=== PATIENT | male | born 1990 | race Caucasian/White ===

== ENCOUNTER 2017-03-07 17:15 | Emergency (ER) | payer BC, SELFPAY ==
[2017-03-07 17:17] VITALS: BP 111/62; PULSE 78; RESP 16; TEMP 36.7; O2SAT 96; BMI 29.1
--- NOTE | 2017-03-07 17:36 | ED.VISSUMM ---
- ER Visit Summary Date of Service: 03/07/17 Chief Complaint: Lower neck pain with numbness in his right hand History of Present Illness: The patient is a 26 M no senior past medical or surgical history. Patient states for 1 month is atraumatic lower neck pain with radiation to his right hand and numbness. States he is taking a bottle of NSAIDs a week. It does help him with the discomfort but is not getting any better. He denies any prior neck or back injury or surgeries. He believes it to be a pinched nerve. He has no primary care physician. Physical Examination: Well-appearing young male. Vital signs are stable afebrile. HEENT exam unremarkable. C-spine nontender. Full range of motion to his neck. No trapezial tenderness or spasm. Lungs clear to auscultation bilaterally. Heart regular rate and rhythm no murmur. Abdomen soft nontender. He is moving all 4 extremities. They are neurovascularly intact. Specifically he has full range of motion of his right shoulder, right elbow, right wrist and right hand. He has 5 out of 5 orderly strength of the right hand. Normal color. Normal cap refill. Warm. No muscular wasting. Normal radial pulse. Neurologic exam is normal. Subjectively he has sensation but is decreased in his right hand compared to his left. It is not in a carpal tunnel distribution and stocking glove in the right hand. But again he does have sensation. Test Results: None Emergency Department Course and Treatment: Patient's history and exam is consistent with potentially a cervical disc with nerve impingement. He has good motor strength and no muscular wasting of his right upper extremity. He needs outpatient follow-up and most likely an outpatient MRI. I discussed at length with both the patient and his in the room are both are comfortable with the plan. He will continue taking NSAIDs but I told him at most use 800 mg 3 times a day. Treatment Plan: Patient will be referred to Dr. Gentry Whitt. For outpatient follow-up and set up for an outpatient MRI. Disposition: Discharge Impression: Lower neck pain with radiation to his right hand with subjective numbness suspect secondary to degenerative disc disease and nerve impingement This note was generated with [employer] dictation software. It may contain incorrect words, spelling, and punctuation that were not noted in review of the chart prior to signing ED Disposition - Plan for ED Patient: Chief Complaint: Other, Pain/Inj
--- NOTE | 2017-03-07 17:38 | ED.RN ---
pt reports burning sensation in neck going down arm. denies chest pain or any other sx. pt reports going to chiropractor but no improvement. taking ibuprofen at home.
--- NOTE | 2017-03-07 17:39 | ED.DCSUM_ITS ---
- ER Visit Summary Date of Service: 03/07/17 Chief Complaint: Lower neck pain with numbness in his right hand History of Present Illness: The patient is a 26 M no senior past medical or surgical history. Patient states for 1 month is atraumatic lower neck pain with radiation to his right hand and numbness. States he is taking a bottle of NSAIDs a week. It does help him with the discomfort but is not getting any better. He denies any prior neck or back injury or surgeries. He believes it to be a pinched nerve. He has no primary care physician. Physical Examination: Well-appearing young male. Vital signs are stable afebrile. HEENT exam unremarkable. C-spine nontender. Full range of motion to his neck. No trapezial tenderness or spasm. Lungs clear to auscultation bilaterally. Heart regular rate and rhythm no murmur. Abdomen soft nontender. He is moving all 4 extremities. They are neurovascularly intact. Specifically he has full range of motion of his right shoulder, right elbow, right wrist and right hand. He has 5 out of 5 certified prosthetist vice president strength of the right hand. Normal color. Normal cap refill. Warm. No muscular wasting. Normal radial pulse. Neurologic exam is normal. Subjectively he has sensation but is decreased in his right hand compared to his left. It is not in a carpal tunnel distribution and stocking glove in the right hand. But again he does have sensation. Test Results: None Emergency Department Course and Treatment: Patient's history and exam is consistent with potentially a cervical disc with nerve impingement. He has good motor strength and no muscular wasting of his right upper extremity. He needs outpatient follow-up and most likely an outpatient MRI. I discussed at length with both the patient and his in the room are both are comfortable with the plan. He will continue taking NSAIDs but I told him at most use 800 mg 3 times a day. Treatment Plan: Patient will be referred to Dr. Gentry Whitt. For outpatient follow-up and set up for an outpatient MRI. Disposition: Discharge Impression: Lower neck pain with radiation to his right hand with subjective numbness suspect secondary to degenerative disc disease and nerve impingement This note was generated with [employer] dictation software. It may contain incorrect words, spelling, and punctuation that were not noted in review of the chart prior to signing ED Disposition - Plan for ED Patient: Chief Complaint: Other, Pain/Inj
--- NOTE | 2017-03-07 17:39 | ED.DEP ---
ED Disposition - Plan for ED Patient: Disposition: Home or Assisted Living Chief Complaint: Other, Pain/Inj Instructions: ED Neck Pain No Trauma Referrals: Zacarias Gilmore MD [STAFF PHYSICIAN] - Additional Instructions: Call and follow-up with Dr. Gentry Gilmore's office as soon as possible. They can set her up with an outpatient MRI. Advil, Motrin or ibuprofen no more than 800 mg 3 times a day. Return to the ER if loss of motor strength to your right hand or arm. Most likely this is a pinched nerve in your neck.
--- NOTE | 2017-03-07 17:50 | ED.RN ---
THIS RN REVIEWED WRITTEN AND VERBAL DISCHARGE INSTRUCTIONS WITH PT AND PT . PT AND VERBALIZE UNDERSTANDING OF INSTRUCTIONS. PT EDUCATED ON PROPER IBUPROFEN DOSING. ICE PACK PLACED ON RIGHT SHOULDER PRIOR TO DISCHARGE. PT STATES HE WILL CALL DR. MENDEZ TO SET UP APPT. AND INFORMED HE MAY NEED AND MRI. PT EDUCATED TO RETURN WITH ANY WORSENED SX SUCH LOSS OF FUNCTION IN RIGHT ARM. PT AMBULATORY HOME WITH AND CHILDREN WITH NO ASSISTANCE FROM STAFF.
== END 2017-03-07 17:54 | disposition home or self-care (01) ==
PROVIDERS: Emergency Provider Emergency Medicine
DX: M54.12 Radiculopathy, cervical region (principal)
CPT/HCPCS: 99282

== ENCOUNTER → 2017-03-09 16:32 | Outpatient (CLI) | payer BC, SELFPAY ==
[2017-03-07 17:17] VITALS: BP 111/62; BMI 29.1
--- NOTE | 2017-03-09 16:35 | RAD_ITS ---
STUDY: X-RAY - CERVICAL SPINE REASON FOR EXAM: Male, 26 years old. Cervical radicular pain TECHNIQUE: 6 view(s) of the cervical spine were obtained. COMPARISON: None FINDINGS: Normal anterior atlantoaxial articulation. Normal odontoid process. Normal cervical lordosis. Normal vertebral bodies and endplates. Normal disc space heights. Mild neural foraminal narrowing bilaterally at C4-5. The soft tissue structures are unremarkable. RAD/Cerv Spine 4 or 5 Views IMPRESSION: Mild bilateral C4-5 neural foraminal narrowing. Electronically Signed: Olaf Rae DO at 9:38 EST , Service support ,
== END ==
PROVIDERS: Visit Provider Family Medicine
DX: M54.12 Radiculopathy, cervical region (principal); M48.02 Spinal stenosis, cervical region
CPT/HCPCS: 72050

== ENCOUNTER → 2017-03-22 17:54 | Outpatient (CLI) | payer BC, SELFPAY ==
--- NOTE | 2017-03-22 18:00 | MRI_ITS ---
STUDY: MRI CERVICAL SPINE WITHOUT CONTRAST REASON FOR EXAM: Male, 26 years old. Right radicular neck pain TECHNIQUE: Standardized fat and water weighted pulse sequences were obtained in the sagittal and axial planes. COMPARISON: None FINDINGS: There is a normal craniovertebral junction. There is also an intact tectorial membrane. There is overall normal alignment and curvature of the cervical spine with no acute fractures or dislocations and no abnormal marrow infiltrative processes. There is disc protrusion at the C6-C7 level in the right foraminal area. There is no tonsillar ectopia. The cervical spinal cord is of normal morphology and signal intensity. C2-3: Normal endplates. Normal disc height, signal and morphology. Normal central canal and intervertebral neural foramina. C3-4: Normal endplates. Normal disc height, signal and morphology. Normal central canal and intervertebral neural foramina. C4-5: Normal endplates. Normal disc height, signal and morphology. Normal central canal and intervertebral neural foramina. C5-6: Normal endplates. Normal disc height, signal and morphology. Normal central canal and intervertebral neural foramina. C6-7: There is a fairly large 1.1 x 0.5 cm right foraminal disc protrusion at the C6-C7 level with narrowing of the intervertebral foramen and compression on the exiting right C7 nerve root. The cervical spinal cord is normal.. C7-T1: Normal endplates. Normal disc height, signal and morphology. Normal central canal and intervertebral neural foramina. . MRI/Spine Cervical (Routine) IMPRESSION: A fairly large 1.1 x 0.5 cm right foraminal disc protrusion at the C6-C7 level with impingement on the exiting right C7 nerve root. The cervical spinal cord is of normal morphology and signal intensity with no myelopathy or myelomalacia adenopathy. Electronically Signed: Don Mayer, at 8:00 EST Tel , Service support ,
== END ==
PROVIDERS: Visit Provider Family Medicine
DX: M50.123 Cervical disc disorder at C6-C7 level with radiculopathy (principal)
CPT/HCPCS: 72141

== ENCOUNTER 2023-12-28 20:00 | Emergency (ER) | payer BC, SELFPAY ==
[2023-12-28 20:01] VITALS: BP 163/106; PULSE 86; RESP 18; TEMP 36.2; O2SAT 99; BMI 31.8
--- NOTE | 2023-12-28 20:16 | EX.ED.GENINJ ---
HPI <MARSHA Delgado - Last Filed: 12/28/23 21:33> History of Present Illness Chief Complaint: Laceration Narrative Narrative: 33-year-old male accidentally kicked a rayne with his left foot. He was wearing socks and slides and the shoe came off and he sustained a laceration on the bottom surface of the toe. Last tetanus unknown. He is not diabetic. PFSH <MARSHA Delgado - Last Filed: 12/28/23 21:33> PFSH Medical History no medical history Home Medications ?Medication ?Instructions ?Recorded ?Last Taken ?Type NK 03/07/17 Unknown History Allergy/AdvReac Type Severity Reaction Status Date / Time No Known Allergies Allergy Verified 12/28/23 20:01 Family History no significant family his Surgical History no surgical history Social History Smoking Status: Never smoker ROS <MARSHA Delgado - Last Filed: 12/28/23 21:33> ROS ED ROS Narrative Neuro: Negative for motor/sensory dysfunction. Skin: Positive for laceration. Musc: Positive for toe pain, trauma. EXAM <MARSHA Delgado - Last Filed: 12/28/23 21:33> Physical Exam Narrative Exam Narrative: CONST: Patient sitting in no acute distress. SKIN: 3.5 cm linear laceration plantar surface left foot at the base of the big toe. EXTREMITIES: Normal appearance, full range of motion left foot and ankle, normal sensation, 2+ DP pulse. NEURO: Alert and answering questions appropriately. Const Vital Signs: 12/28/23 20:01 12/28/23 20:55 Temperature 97.2 F L 97.2 F L Temperature Source Temporal Pulse Rate 86 86 Respiratory Rate 18 18 Blood Pressure 163/106 H 148/78 H Blood Pressure Mean 125 101 Pulse Ox 99 99 Oxygen Delivery Method Room Air <Dr. Stu Jackson DO - Last Filed: 12/28/23 21:21> Physical Exam Const Vital Signs: 12/28/23 20:01 12/28/23 20:55 Temperature 97.2 F L 97.2 F L Temperature Source Temporal Pulse Rate 86 86 Respiratory Rate 18 18 Blood Pressure 163/106 H 148/78 H Blood Pressure Mean 125 101 Pulse Ox 99 99 Oxygen Delivery Method Room Air PROC <MARSHA Delgado - Last Filed: 12/28/23 21:33> Procedures Lacerations left big toe: Length: 3.5 cm Depth: Sub Q Shape: Linear Prep: Sterile Conditions Laceration repair: Digital block, Irrigated, Lidocaine and Wound explored Irrigated (ml): 250 Number of Sutures/Fan: 7 Suture Information: Ethilon and 4-0 MDM <MARSHA Delgado - Last Filed: 12/28/23 21:33> [facility] Narrative Medical decision making narrative: Patient sustained a laceration on the plantar surface of his left great toe from a traumatic injury. He is neurovascularly intact. X-ray shows no acute fracture. Wound was thoroughly anesthetized, irrigated, explored and closed with 7 simple ruptured sutures of 4-0 Ethilon. Tetanus was updated and wound care instructions given and he was discharged in stable condition. Radiography Diagnostic Testing: Clinical Impression(s) from Imaging Studies Foot X-Ray 12/28/23 20:23 IMPRESSION: Normal x-ray examination of the foot. Electronically Signed: Guillermo Moran MD at 20:40 EST , ED attending interpretation of left foot shows no fracture or dislocation. <Dr. Stu Jackson DO - Last Filed: 12/28/23 21:21> [facility] Radiography Diagnostic Testing: Clinical Impression(s) from Imaging Studies Foot X-Ray 12/28/23 20:23 IMPRESSION: Normal x-ray examination of the foot. Electronically Signed: Guillermo Moran MD at 20:40 EST , Treatment and Re-Evaluation Narrative: I have personally performed a face to face assessment of the patient and have reviewed the GUERRERO Note. I performed a substantive portion of the visit including all aspects of the following. My thao findings include: History: Patient presents with laceration to his left great toe that occurred today. Patient states he accidentally kicked a rayne. The patient states his pain is burning. Reports precursors over the left great toe. Patient denies any other trauma or injury. Patient denies any paresthesias or weakness. Patient is unsure of his last tetanus. Exam: Vital signs are stable except for mildly elevated blood pressure 163/106. Patient is afebrile. Patient is in no acute distress. Musculoskeletal exam reveals mild tenderness over the plantar aspect of the proximal phalanx of the left great toe. There is no bony crepitance or step-off. There is no deformity noted. There is a 3.5 cm full-thickness linear laceration on the plantar aspect of the left great toe over the proximal phalanx. There are no foreign bodies noted. There is no active bleeding noted. There is good range of motion of the MP and IP joints of the great toe. Sensation was intact to light touch in all digits. Capillary refill was less than 2 seconds in all digits. Medical Decision Making: Differential diagnosis includes open fracture, contusion, and laceration. X-rays of the left foot will be obtained to assess for fracture and dislocation. X-rays of the left foot were obtained. There are 3 views. On my independent interpretation, there is no acute fracture or dislocation noted. Radiologist also interpreted the x-rays and agrees. The wound was cleaned and closed by the GUERRERO under my supervision. Patient tolerated procedure well. Patient was instructed to follow-up with his primary care physician in 7 days for wound recheck and suture removal. Patient was instructed to keep the wound clean and dry. Patient was instructed to return if worse in any way. Patient understood and was agreeable with the plan. All questions were answered. Discharge Plan Triage Chief Complaint: Laceration ED Midlevel Provider: Nancie Ruiz ED Provider: Stu Jackson Dx/Rx/DC Orders Clinical Impression: Laceration of great toe of left foot Prescriptions: No Action NK Primary Care Provider: Care Physician,No Primary Referrals: Care Physician,No Primary [Primary Care Provider] - Activity Restrictions/Additional Instructions: Stitches need removed in 12 to 14 days. Keep area clean and dressed with bacitracin and bandage. If any signs of infection develop like redness swelling or pus be reevaluated immediately. Print Language: Luxembourgish Disposition Disposition: Home, Self Care Discharge Date/Time: 12/28/23 21:29
[2023-12-28] MEDS: Diphth,Pertuss(Acell),Tet Vac 0.5 ML Vial IM (20:19)
[2023-12-28] MEDS: Lidocaine 1% (20 ml mdv) 20 ML Vial INFILT (20:19)
--- NOTE | 2023-12-28 20:23 | RAD_ITS ---
STUDY: X-RAY - LEFT FOOT CLINICAL: Male, 33 years old. pain TECHNIQUE: 3 view(s) of the foot. COMPARISON: None. FINDINGS: Normal talus, calcaneus, and tarsal bones. Normal visualized subtalar, talonavicular, calcaneocuboid, tarsal and tarsometatarsal articulations. Normal metatarsi. Normal metatarsophalangeal joint of the great toe. Normal tibial and fibular sesamoid bones. Normal interphalangeal joint of the great toe. Normal phalanges of the great toe. Normal second through fifth metatarsophalangeal joints. Normal interphalangeal joints and phalanges of the lesser toes. The soft tissue structures are unremarkable. There is no demonstrated fracture. RAD/Foot min 3 Views IMPRESSION: Normal x-ray examination of the foot. Electronically Signed: Guillermo Moran MD at 20:40 EST ,
[2023-12-28 20:55] VITALS: BP 148/78; PULSE 86; RESP 18; TEMP 36.2; O2SAT 99
== END 2023-12-28 21:29 | disposition home or self-care (01) ==
PROVIDERS: Emergency Provider Emergency Medicine; Visit Provider Emergency Medicine
DX: S91.112A Laceration without foreign body of left great toe without damage to nail, initial encounter (principal); X58.XXXA Exposure to other specified factors, initial encounter
CPT/HCPCS: 12002; 73630; 90715; 99283